=== PATIENT | female | born 1950 | race Caucasian/White ===

== ENCOUNTER 2019-08-04 16:30 | Emergency (ER) | payer MEDICARE ==
[~2019-08-04] VITALS: Ht 160 cm; Wt 67.0 kg
[2019-08-04] MEDS ORDERED: DOFE500C PO (17:54)
[2019-08-04 18:39] VITALS: BP 147/93
== END 2019-08-04 18:40 | disposition home or self-care (01) ==
LOC: ER 16:31
DX: R60.0 Localized edema (principal); Z76.0 Encounter for issue of repeat prescription; Z88.8 Allergy status to other drugs, medicaments and biological substances
CPT/HCPCS: 99283